=== PATIENT | female | born 1950 | race Caucasian/White ===

== ENCOUNTER 2019-12-21 14:04 | Inpatient (IN) | payer OTHER ==
[~2019-12-21] VITALS: Ht 157.5 cm; Wt 87.3 kg
[2019-12-21 14:04] VITALS: BP 188/114
[2019-12-21 14:29] LABS: ABSOLUTE NEUTROPHILS 4.9 thou/uL (1.4-8.2); EOSINOPHILS 2.7 % (0.0-3.0); HEMATOCRIT 37.7 % (37.0-47.0); HEMOGLOBIN 12.8 gm/dL (12.0-15.0); LYMPHOCYTES 22.8 % (24.0-44.0); MCH 33.1 pg (26.0-34.0); MCHC 33.8 g/dL (28.0-37.0); MCV 97.7 fL (80.0-100.0); PLATELET COUNT 346 thou/uL (150-400); POLYS 65.5 % (36.0-66.0); RBC 3.86 mil/uL (4.20-5.00); RDW 13.1 % (10.5-14.5); WBC 7.5 thou/uL (4.0-11.0)
[2019-12-21 14:35] LABS: ANION GAP 10 mmol/L (7-16); BUN 16 mg/dL (7-18); CALCIUM 8.4 mg/dL (8.5-10.1); CHLORIDE 102 mmol/L (98-107); CO2 26 mmol/L (21-32); CREATININE 0.9 mg/dL (0.6-1.0); GLUCOSE 226 mg/dL (74-106); POTASSIUM 4.3 mmol/L (3.5-5.1); SODIUM 138 mmol/L (136-145)
[2019-12-21 14:45] LABS: ALBUMIN 3.6 g/dL (3.4-5.0); SGOT 14 U/L (15-37); SGPT 27 U/L (30-65); TOTAL BILIRUBIN 0.3 mg/dL (0.2-1.0); TOTAL PROTEIN 7.6 g/dL (6.4-8.2); TROPONIN-I <0.06 ng/mL (<0.06)
--- NOTE | 2019-12-21 14:45 | EKG ---
[facility] [place] [address] ELECTROCARDIOGRAM REPORT Name: YUMI CAMARA Room #: [facility].#: [id number] Admission: Attend Phys: Discharge: Date of : 46 Report #: [id number] THIS REPORT FOR: cc: Suleman Mattson MD [facility] ~ THIS REPORT FOR: //name// [facility] ED Test Date: 2019-12-21 Test Time: 14:03:58 Pat Name: YUMI CAMARA Department: Room: Gender: F Dial Buffer: [facility] : 1950 Requested By: Krishna Lowe Order Number: [id number] MD: Suleman Mattson Measurements Intervals [place] Rate: 90 P: 62 OR: 180 QRS: 24 QRSD: 86 T: 90 QT: 383 QTc: 469 Interpretive Statements Sinus rhythm Borderline repolarization abnormality No previous ECG available for comparison Electronically Signed On 12-21-2019 14:45:21 CDT by Suleman Mattson [email or web address] <ELECTRONICALLY SIGNED> By: Suleman Mattson MD, FAC 12/21/19 1445 1403 1403 Suleman Mattson MD, FACC /EPI
--- NOTE | 2019-12-21 14:52 | NUR ---
PT STATES SHE IS CONT TO HAVE CHEST PAIN AND NECK PAIN. ERP NOTIFIED
--- NOTE | 2019-12-21 15:58 | NUR ---
PT CONT TO COMPLAIN OF CHEST AND NECK PAIN. ERP AWARE.
[2019-12-21 16:13] LABS: BE(vivo) -1.8 mmol/L (-2 to +3); HCO3 22.8 mmol/L (22.0-26.0); PCO2 38.3 mmHg (35.0-45.0); PO2 81.1 mmHg (80.0-100.0); pH 7.393 (7.360-7.450); sO2 95.9 % (92.0-98.0)
--- NOTE | 2019-12-21 16:20 | NUR ---
PT NOW DEMANDING TO BE RELEASED. DR MCGINNIS JUST LEFT ROOM
[2019-12-21 16:27] LABS: URINE BILIRUBIN NEGATIVE (Negative); URINE BLOOD NEGATIVE (Negative); URINE CLARITY CLEAR; URINE COLOR YELLOW; URINE GLUCOSE-RANDOM* TRACE (Negative); URINE KETONES NEGATIVE (Negative); URINE LEUKOCYTES-REFLEX NEGATIVE (Negative); URINE NITRITE-REFLEX NEGATIVE (Negative); URINE PROTEIN (DIPSTICK) NEGATIVE (Negative)
[2019-12-21 16:36] LABS: AMP/METHAMP Negative (Negative); BARBITURATES Negative (Negative); BENZODIAZEPINES POSITIVE (Negative); COCAINE Negative (Negative); METHADONE Negative (Negative); OPIATES Negative (Negative); PCP Negative (Negative)
--- NOTE | 2019-12-21 22:03 | NUR ---
PT'S SON CALLED. PATIENT HAS BEEN ASKING ABOUT SON AND WISHING TO SPEAK WITH HIM. PT CURRENTLY ASLEEP. SPOKE WITH CHARGE NURSE AND AGREES ITS OK TO TELL SON ABOUT PATIENTS CONDTION. SON IS UPDATED AND WOULD LIKET O BE CALLED WITH FURTHER UPDATES. DOES NOT KNOW OWN PHONE NUMBER BUT STATES PATIENT WILL KNOW WHEN SHE WAKES UP.
[2019-12-21 23:00] VITALS: BP 124/78
--- NOTE | 2019-12-22 02:13 | NUR ---
12/21/19 RECEIVED REPORT FROM POONAM IN ER, CARE TRANSFERRED AT 2300 PT AAOX1 VS LEFT ARM LYING 124/78, P 74, R 18, T 97.9, 96% RA, RR EVEN AND NONLABORED, PT PRESENTS SEDATED AND STAFF TRANSFERRED FROM [facility] TO BED, PT DRESSED IN HOSIPTAL GOWN AND NO PERSONAL ITEMS RECEIVED. PT IS CURRENTLY 1:1 R/T SI STATEMENTS IN ED, FALLS PRECAUTION PUT IN PLACE R/T SEDATION AND UNABLE TO FULLY ASSESS GAIT AND ROM. OF NOTE RNPOONAM SENT NEG COVID19 LAB WORK, THIS ADMISSION IS LIMITED AND LACKING INFORMATION FOR MEDICAL HISTORY AND MEDICATION LIST. LATER ASSISTED PT TO BEDSIDE COMMODE, PT LETHARGIC AND NEEDS MAX ASSIST X2 WITH STANDBY ASSIST R/T SEDATION. PT WAS PLACED IN BED AND POSITION FOR COMFORT. BED IS IN LOW POSITION, LOCKED AND ALARM ON WITH SITTER. PT WILL CONTINUE TO BE MONITOR 1:1 STATUS.
[2019-12-22 10:36] LABS: FOLIC ACID 14.9 ng/mL (8.6-58.9); TSH 0.808 uIU/mL (0.358-3.740)
--- NOTE | 2019-12-22 17:40 | NUR ---
Assumed care of patient at 0700. Sleeping, is on 1:1 for suicidal ideation. Resting. Breath sounds with bilateral rhonchi, moist non-productive cough, bowel sounds present, abdomen round without tenderness. Ambulating, steady on feet. No pedal edema noted. Tearful. Patient states is concerned about son and his state of mind. Complaining of severe feet pain. Patient states is (12/31). Signed consents for voluntary admission.
[2019-12-22 19:46] VITALS: BP 105/50
--- NOTE | 2019-12-23 02:07 | NUR ---
PATIENT ASSESSED IS VERY COOPERATIVE IN TAKING HER MEDICATION AT HS. ALERT X 3. SKIN WARM AND DRY. RESP EVEN AND UNLABORED. NO SI/HI NOTED BUT VERY ANXIOUS. WANTED HER XANAX FOR HER ANXIETY. PACING THE HALLWAY. REQUESTED FOR HER BELONGINGS THAT SHE BROUGHT IN IN ED. CALLED ED AND THEY HAD HER CLOTHES AND HER COMB. ALWAYS ASKING FOR SOMETHING NEW. CALLED AND RECEIVED ONE TIME MED FOR ANXIETY. OLANZAPINE GIVEN. PATIENT STILL ASKING FOR HER BELONGINGS. FINALLY WENT IN HER ROOM AND LAID DOWN. SHE FINALLY WENT TO SLEEP AT 2220. STILL SLEEPING OF 0220. BS WAS 201. DENIES ANY NEEDS AT THIS TIME. REMAINS SLEEPING. CONT PLAN OF CARE.
[2019-12-23 05:07] LABS: GLYCOHEMOGLOBIN (HGB A1C) 6.7 % (4.8-5.6)
--- NOTE | 2019-12-23 05:50 | NUR ---
Patient awake and came to nursing station and stated "can I have my xanax", patient apears to be anxious. Crackers given and xanax given and back to bed.
[2019-12-23 08:00] VITALS: BP 136/95
--- NOTE | 2019-12-23 09:05 | NUR ---
PT WAS IN ROOM LET THIS NURSE TAKE BLOOD SUGAR AND GIVE S/S INSULIN. PT TOOK MEDS AND B12 INJECTION WITH SOME ENCOURAGEMENT. PT IS EASILY REDIRECTED.ATE BREAKFAST. GIVEN SCED PAIN MED. NO RESP DISTRESS. PT IS PINK UNDER BREASTS WITH YEAST ODOR. WILL GET NYSTATIN PWDER PRN IF DOCTOR OKAYS
--- NOTE | 2019-12-23 10:09 | NUR ---
PT DID NOT WANT TO GO TO GROUP IS ON ROOM LOCK OUT. THIS NURSE SAT WITH PATIENT AND PRAYED WITH PATIENT. GIVEN PRN PAIN MED AND AT THIS TIME PT IS GOING TO TAKE NAP.
--- NOTE | 2019-12-23 12:43 | NUR ---
PT ATE LUNCH AND IS NOW SPEAKING WITH THE DOCTOR. INSULIN ORDERS DCD. PT HAS NEW ODERS SEE MAR. HAS NEW TX ORDERS.
--- NOTE | 2019-12-23 15:32 | NUR ---
SW was informed by Dr. Cuellar that he and pt has agreed to a d/c of 1300 on 12/23. He asked that SW schedule a PCP appointment, and that she link pt to psych services. Pt said her PCP is Dr. Allison with [facility]. SW contacted the clinic that Dr. Allison works in and was told that pt actually sees Elizabet Sneed. ASHLEY scheduled an appt with Elizabet for 12/28 @930 in building C. SW team will continue to follow pt during her stay on this unit.
[2019-12-23 17:11] VITALS: BP 136/95
[2019-12-23 19:48] VITALS: BP 122/61
--- NOTE | 2019-12-23 23:28 | NUR ---
Care assumed of patient at 1915: Patient sleeping in bed at start of shift. Patient difficult to arouse, lethargic, slurring words. During initial assessment, patient had difficulty staying awake. Patient was able to report that her anxiety was a 10/10 and pain to lower extremities was "bigger than 10/10" while appearing lethargic. Patient was able to wake up quickly when she was told that her son tried to call. Patient asked for the phone and was assisted in calling her son. Patient then requested a snack and was told she would need to come to the dayroom. Patient argumentative and agitated at that point. Patient denies SI/HI/AH/VH. Denies depression. Patient then became physically inappropriate by touching nurse, hugging, pulling her arm. Required re-direction on respecting personal boundaries. Patient had multiple complaints regarding staff and other peers on the unit. Soon after, patient would state that she is not ready to go home tomorrow. Patient talking excessively, needy, wanting assist from staff despite being able to complete ADLs independently. Patient demanded apple juice with her PM pills because she could not take them with water, despite that she was drinking ice water at the time. Patient hollering from her room stating she can't sit up and wanted staff to lift her up. Nurse raised head of bed so she could pivot and sit up easier. Patient then said, "no, it is your job to lift me up!". Funmilayo from her room, attention seeking. Refused nebulizer treatments from RT. Patient was able to fall to sleep without difficulty after taking HS medication. After approximately 1.5 hours, patient demanding pain medication for her "breakthrough pain". No s/s of pain or distress observed. No lethargy or sluggish behaviors observed. Provided PRN Oxycodone per MD order. Patient sleeping in bed at this time.
[2019-12-24 07:53] VITALS: BP 147/77
[2019-12-24 08:36] VITALS: BP 147/77
--- NOTE | 2019-12-24 08:36 | NUR ---
PT SITTING OUT IN DINING ROOM. PT STATED SHE DIDN'T WANT TO GO HOME TODAY THAT SHE OPENED UP SOMETHING IMPORTANT AND SHE WANTS TO STAY. PT STATED SHE WANTED AN MRI FOR HER BACK DUE TO IT IS HURTING HER OF PAIN LEVEL 12 OUT OF 1-10. PT WANTING TO TALK TO TILE LAYER DRAINAGE TODAY. PT WANTING TO TALK TO DR FORREST.
[2019-12-24 08:37] VITALS: BP 147/77
--- NOTE | 2019-12-24 08:47 | NUR ---
ADM XANAX 1MG PO PER REQUEST. PT WANTING PAIN MEDICATION ALSO, PT HAD EARLY THIS AM AND NOT DUE AT THIS TIME.
[2019-12-24] MEDS ORDERED: LIPITOR40 MG PO (11:38)
[2019-12-24] MEDS ORDERED: ZETIA10 MG PO (11:40)
[2019-12-24] MEDS ORDERED: COREG6.25 MG PO (11:40)
[2019-12-24] MEDS ORDERED: BENICAR40 MG PO (11:41)
[2019-12-24] MEDS ORDERED: OXYCONTIN10 M1 PO (11:42)
[2019-12-24] MEDS ORDERED: NEURONTIN600 MG PO ×2 (11:43→11:44)
[2019-12-24] MEDS ORDERED: OXCARBAZEPINE300 MG PO (11:44)
[2019-12-24] MEDS ORDERED: GLUCOPHAGE500 MG PO (11:45)
[2019-12-24] MEDS ORDERED: XANAX1 MG PO (11:45)
[2019-12-24] MEDS ORDERED: PT HOME MEDICATION MISCELL (11:46)
[2019-12-24] MEDS ORDERED: AMARYL2 MG PO (11:46)
--- NOTE | 2019-12-24 11:59 | NUR ---
PT CRYING AND UPSET ABOUT GOING HOME TODAY.
--- NOTE | 2019-12-24 12:54 | NUR ---
PT GETTING READY TO GO HOME. PT DIDN'T WANT TO WEAR HER SHIRT FROM ADMIT SAYING ITS TOO HOT. PT WANTING TO WEAR YELLOW SHIRT HOME. TOLD PT SHE NEEDS TO WEAR HER CLOTHES. ADM PERCOCET 7.5MG PO FOR PAIN TO LOWER BACK.
--- NOTE | 2019-12-24 13:04 | NUR ---
PT STATED SHE DIDN'T HAVE ANY MONEY TO PAY FOR HER MEDS. OUT PATIENT PHARMACY FILLING HER MEDS AND SAID THAT SHE HAD HER MEDS FILLED OUT ALREADY. PT TALKING ABOUT SHE ISN'T TAKING PERCOCET 7.5MG BEFORE, SHE WAS TOLD TO GET RID OF HER PERCOCET 5MG AND SHE GROUND IT UP IN THE GARBAGE DISPOSAL. SHE SAYS THAT SHE WILL NEED HER MEDS FROM HERE. THERE IS A MEDICATION THAT IS GETTING FILLED IN OP PHARMACY THAT WE WILL CARTOGRAPHY TECHNICIAN FOR HER.
--- NOTE | 2019-12-24 13:50 | NUR ---
PT TALKING ON PHONE WITH FRIEND. PT CRYING AND SAID SHE DIDN'T HAVE ANY MONEY TO PAY FOR HER MEDS. SHE ASKED WHAT HER FRIEND IS DOING TONIGHT AND HER FRIEND SAID THAT SHE WAS GOING TO HAVE DINNER WITH HER FAMILY. THE PT CRYING AND SAID SHE WISHES SHE WAS GOOD ENOUGH TO HAVE DINNER WITH THE FAMILY TOO. SHE ASKED HER FRIEND IF SHE WAS A GOOD PERSON. SHE DIDN'T WANT TO SIGN HER D/C INSTRUCTIONS. THIS BASE FILLER OPERATOR PICKED UP SCRIPT FOR PT IN THE OUT PATIENT PHARMACY AND ALSO PICKED UP HOME MED IN PHARMACY. PUT MEDS IN HER BAGS FOR DISCHARGE. PT LEFT VIA W/C TO CAB.
--- NOTE | 2019-12-24 14:12 | NUR ---
ASHLEY D/C NOTE ASHLEY gave pt a SW Handout and explained to her the appt with her PCP and how to contact [facility] for case management. ASHLEY also contacted [facility] and spoke to the Supervisor [employer] Kyra. She said she does not know pt because she lives in one of the apartments. ASHLEY asked if they knew anything about pt's son. She said no. She said if pt's son is found to be in the apartment they will hotline this issue. ASHLEY faxed to [facility] building D pt's discharge docs. ASHLEY will file this and the confirmation page in pt's hospital file. No other needs for ASHLEY team to address at this time.
--- NOTE | 2019-12-27 07:44 | H ---
[facility] [place] [address] HISTORY AND PHYSICAL Name: YUMI CAMARA Room #: 519B-B [facility] IN M.R.#: [id number] Admission: 12/21/19 Attend Phys: Konrad Cuellar DO Discharge: 12/24/19 Date of : 46 Report #: [id number] THIS REPORT FOR: cc: DANGELO - Family physician unknown FAM - Family physician unknown Konrad Cuellar DO ~ CC: Konrad PIERSON unknown DATE OF SERVICE: 12/22/2019 INPATIENT PSYCHIATRIC EVALUATION ATTENDING PSYCHIATRIST: Konrad Cuellar DO. CUSTOM TAILOR: Ana Cristina Kendall, nurse practitioner and her collaborating physician Fahad Bustamante MD. REASON FOR ADMISSION: Suicidal ideation with a pen, possible overdose abuse of benzodiazepine. SOURCES OF INFORMATION: Interview with the patient. Affidavit done by her friend, Mario, Emergency Room records. HISTORY OF PRESENT ILLNESS: This is a 69-year-old obese female, who was brought by EMS to [facility] yesterday afternoon. The patient was brought due to a 911 call placed by her friend, Mario Susan. Mario's phone number is [phone]. Mario allegated on the [facility] affidavit for emergency evaluation. She has found the patient talking on the phone often. The patient has been very upset with her living situation. She lives at [address], in an independent living kind of apartment. Today around noon this would have been on 12/20, she said she wished she was . She said "I am going to kill myself." After a few moments of talking, she said "wait until I find a knife, I am going to slit my wrists," then she said "I have plenty of pills to do that, you know." A couple of days previously on Friday, her friend picked up a prescription of alprazolam for her. The patient told her friend that she only had 15 tablets left for now. I asked what happened to the other pills and she stated she gave it to her son to help him sleep because "I couldn't handle him anymore." She said she accidentally "went through the rest of the day." Her friend was afraid she had overdosed on them. In the Emergency Room, the patient was intermittently somnolent, complaining of peripheral leg pain. She denied that, she stated she wanted to harm herself. I reviewed with her recent medical admissions from around a month ago where the patient had declined to go to a detention facility. She stated that she did not need it was the reason. The patient was oriented to person, place, and situation at least grossly to time. She was falling asleep easily in the ER, [place] [address] HISTORY AND PHYSICAL Name: YUMI CAMARA Room #: 519B-B DIS IN M.R.#: [id number] Admission: 12/21/19 Attend Phys: Konrad Cuellar, Discharge: 12/24/19 Date of : 46 Report #: [id number] interview I could do with her yesterday; however, I did explain to the patient that we would need to at least admit her briefly to establish the safety of things. Unfortunately, overnight, on Friday night and Friday, the [place] 96-hour hold application was not completed in the usual timeframe and at this point the patient will have to sign involuntarily, otherwise I will need to discharge her. Since she came to the unit last night, there has not been self-harm behavior for precautions. She was put on a 1:1, but I do not believe this is necessary and I discontinued this this morning. Additional information is heavily obtained from chart review. ALLERGIES: TO CODEINE, FENTANYL, IODINE AND IODINE CONTAINING PRODUCTS, METHOTREXATE, METOCLOPRAMIDE, PROMETHAZINE, AND SULFA. The patient has a separate medical record done from most of her admissions here. Last admission was October of this year on under her hospitalist service. At that time, she had intractable abdominal pain and was admitted for that issue. Her medical problems include coronary artery disease, status post bypass graft, chronic leg pain, and COPD, diarrhea, falls, intractable abdominal pain. Allergies, as stated. ADDITIONAL PAST MEDICAL HISTORY: [place] in 1996, GERD, carpal tunnel syndrome, peripheral neuropathy. SURGICAL HISTORY: Appendectomy, cholecystectomy, laparotomy with left tubo-ovarian abscess and a partial bowel resection, so bladder suspension, hysterectomy for uterine cancer, bilateral salpingo-oophorectomy, cardiac cath x 3. She does have a smoking history. Borderline diabetes mellitus and hypertension. She quit smoking cigarettes over a year ago. It looks like in October she was diagnosed with sepsis as well. DEVELOPMENTAL HISTORY AND SOCIAL HISTORY: Unobtainable. Her friend did tell me the patient lives alone. The patient herself admitted that she was in touch with her daughter, but now this is strange, so I am lacking a lot of social history. LABORATORY DATA: Laboratories on this admission are listed under for some reason history and medical record number, white blood cell count 7.5, H and H 12.8 and 37.7, platelet count 346. Blood gas was normal, done in the ER approximately 6 weeks. Hemoglobin was slightly high at 2.0, upper limit of normal is 1.5. Sodium 138, potassium 4.3, chloride 102, bicarbonate 26, anion gap 10, BUN 16, creatinine 0.9, estimated GFR 62. Hemoglobin A1c is pending. Calcium 8.4, slightly low. AST 14, ALT 27, alkaline phosphatase 88. Troponin [facility] [address] [place] [address] HISTORY AND PHYSICAL Name: YUMI CAMARA Room #: 519B-B DIS IN ..#: [id number] Admission: 12/21/19 Attend Phys: Konrad Cuellar, DO Discharge: 12/24/19 Date of : 46 Report #: [id number] less than 0.06. Total protein 7.6, albumin 3.6. B12 level of 197. Folate 14.9. TSH normal at 0.808. Go ahead and offered her oral B12 at home. I think intramuscular B12 will go over well now, as she is likely going to not sign in and she will need to be discharged since window from the 96-hour was not met. COVID-19 PCR is negative. PHYSICAL EXAMINATION: VITAL SIGNS: Temperature 36.6, pulse 74, respirations 18, BP 124/70, O2 sat 96%. The patient believes he uses a walker. I have not seen her ambulate. MUSCULOSKELETAL: Obese, lying in bed or gurney. MENTAL STATUS EXAMINATION: This is a well-developed, unkempt, obese female appearing older than her stated age. Attention limited. Concentration fair to limited. Speech is normal in rate, volume and tone. Thought process: Linear and goal directed when not fallen asleep. Thought content: Focused on going home. Psychomotor agitation at times. No psychomotor retardation. Denied SI or HI. Denied auditory, visual, or tactile hallucinations. Memory is not formally tested. Mood and affect were congruent, constricted, irritable. Insight limited. Judgment limited. Fund of knowledge, no greater than average. FORMULATION: A 69-year-old female brought by EMS to the ER after she made a threat of suicide over the phone when speaking to her friend, Mario. DIAGNOSES: At this time, unspecified depressive disorder, likely mood disorder due to general medical condition, chronic pain disorder. MEDICATIONS: Currently in the hospital are insulin Humalog sliding scale. Otherwise, house PRNs. She did get an injection of Geodon in the ER, 2 tablets of oxycodone in the ER and 1200 mg stat dose of gabapentin. ESTIMATED LENGTH OF STAY: 2-4 days. PLAN. Will be for her to return to NH. With recommendation, transition to assisted living will be sought. Time spent for this evaluation is 45 minutes. REVIEW OF SYSTEMS: This was not possible due to her level of sedation and cooperation. STRENGTHS: She is insured. [address] [address] HISTORY AND PHYSICAL Name: YUMI CAMARA Room #: 519B-B DIS IN M.R.#: [id number] Admission: 12/21/19 Attend Phys: Konrad Cuellar DO Discharge: 12/24/19 Date of : 46 Report #: [id number] WEAKNESSES: Repeated stays at the hospital throughout the year. Poor coping skills. <ELECTRONICALLY SIGNED> By: Konrad Cuellar DO 12/27/19 0744 1256 1410 Konrad Cuellar DO /nt
--- NOTE | 2019-12-27 08:05 | D ---
[facility] [place] [address] DISCHARGE SUMMARY Name: YUMI CAMARA Room #: 519B-B DIS IN M.R.#: [id number] Admission: 12/21/19 Attend Phys: Konrad Cuellar DO Discharge: 12/24/19 Date of : 46 Report #: [id number] THIS REPORT FOR: cc: DANGELO - Family physician unknown FAM - Family physician unknown Konrad Cuellar DO ~ THIS REPORT FOR: //name// CC: Konrad PIERSON unknown DATE OF SERVICE: 12/24/2019 INPATIENT PSYCHIATRIC DISCHARGE SUMMARY ATTENDING PSYCHIATRIST: Konrad Cuellar DO. . [employer] G[employer] YARD SUPERVISOR AT THE TIME OF DISCHARGE: Fahad Bustamante MD. DISCHARGE DIAGNOSIS: Unspecified depressive disorder, modest improvement. ADDITIONAL DIAGNOSIS: Chronic pain disorder. MEDICAL COMORBIDITIES: Include obesity, diabetes, hypertension, hyperlipidemia, peripheral neuropathy, coronary artery disease. DISCHARGE PLAN: The patient is discharging to her home in an independent living at the [facility]. The patient's primary care physician is Dr. [facility] where she has an appointment for 12/29/2019 at 9:30. The patient will also be engaging with [facility] with [facility]. Our social media project manager, Patti, contacted the social media project manager at [facility]. [facility] social media project manager responded that she ___ the patient because she lives in one of the apartments. They were unaware of any concerns with the patient's son who she claims is addicted to drugs. DIET: Regular. ACTIVITY LEVEL: As tolerated. No alcohol, no illicit drugs. The patient does not smoke to the best of my knowledge. DISCHARGE MEDICATIONS: The patient picked up the prescription of oxcarbazepine 300 mg p.o. b.i.d. #60, 300 mg tabs at the [place] outpatient pharmacy. The pharmacist determined the patient had refills for other medications at the [facility] she normally fills at, so that I had initially dropped out the prescriptions after this was realized, no other prescriptions were filled to limit the potential of dispensing or potential overdose situation, which was of some [facility] [address] [place] [address] DISCHARGE SUMMARY Name: YUMI CAMARA Room #: 519B-B [facility] IN ..#: [id number] Admission: 12/21/19 Attend Phys: Konrad Cuellar DO Discharge: 12/24/19 Date of : 46 Report #: [id number] concern at the time of the patient's admission. REASON FOR ADMISSION: Back on 12/21/2019, she was brought by EMS allegedly she had told in front of the phone she would slit her wrist with a knife. She denies this in the ER, was agitated, reporting having uncontrollable pain in the lower extremities. Interestingly, she has fallen asleep frequently in the ER, she was kept overnight and had to be given with intramuscular Geodon to help through her ER stay. HOSPITAL COURSE: The patient was admitted to Geriatric Psychiatry Unit initially, the patient had been involuntary; however, the 96-hour paperwork was not found in the appropriate window. The patient was given the option the next day about discharging her to sign involuntarily. She did elect to sign involuntarily. I met with the patient, she reported an extensive trauma history. The patient stated she had been living at the [facility] for rehabilitation in the [facility] operation, that facility closed in October and she was forced to move elsewhere, so she is now at [facility]. During the course of this admission, the patient would frequently avoid groups or if she was noted to go to them with little effort of participation. She often complained of staff including the social media project manager and myself are not talking with her. A number of opportunities were given for this and was explained to the patient that the nature of this hospitalization is short stay of stabilization and some of the things she was requesting could only be found in an outpatient individual psychotherapy setting. The patient unfortunately was found to be not benefiting from the environment, so on the day of discharge, she claims "she was jumping out of her skin" yet 15-20 minutes later, she would make jokes. Her behavior was not consistent with someone having overwhelming anxiety or the akathisia that can be seen in acutely suicidal patient. ADDITIONAL INFORMATION: Significant laboratories this admission, on the CBC, white count 7.5, H and H 12.8 and 37.7, platelet count 346. Chemistries were pretty normal except glucose 226 at admission. Hemoglobin A1c 6.7 indicating mild diabetes mellitus type 2. Calcium 8.4, AST 24, ALT 27, alkaline phosphatase 88. Troponin less than 0.06. Total protein 7.6. Vitamin B12 was low at 197 and should be replaced, folate 14.9. TSH 0.808. Urinalysis within normal limits. Salicylate is less than 2.8, acetaminophen less than 2. Benzodiazepines positive. Other things of note toxicology screen was negative. COVID-19 PCR serology was negative. PHYSICAL EXAMINATION: VITAL SIGNS: On the day of discharge, temperature 36.4, pulse 87, respirations 18, BP 147/77, O2 sat 97%. MUSCULOSKELETAL: Normal gait and station. MENTAL STATUS EXAMINATION: This is a well-developed, obese, unkempt female appearing at least stated age. Attention fair. Concentration limited. [facility] [place] [address] DISCHARGE SUMMARY Name: YUMI CAMARA Room #: 519B-B DIS IN M.R.#: [id number] Admission: 12/21/19 Attend Phys: Konrad Cuellar DO Discharge: 12/24/19 Date of : 46 Report #: [id number] Speech loud, normal rate. Thought process is linear and goal oriented. Thought content, focused on times of not being able to go, other times being fairly hostile with staff. Variable psychomotor agitation. Denied SI or HI. Denied auditory, visual, or tactile hallucinations. Memory not formally tested on the day of discharge. Insight limited. Judgment fair to limited. Fund of knowledge below average. PROGNOSIS: For this patient is guarded given her limited ability to tolerate therapeutic interventions as well as her comorbidities of living situation. <ELECTRONICALLY SIGNED> By: Konrad Cuellar DO 12/27/1905 2326 Konrad Cuellar DO /nt
== END 2019-12-24 13:55 | disposition home or self-care (01) | DRG 881 ==
LOC: ER 14:04 → SBH 18:40 → EROBS 18:40 → SBH 22:56
PROVIDERS: Emergency Medicine; ADMIT Psychiatry & Neurology Psychiatry; ATTEND Psychiatry & Neurology Psychiatry
DX: F32.9 Major depressive disorder, single episode, unspecified (principal); T42.4X2A Poisoning by benzodiazepines, intentional self-harm, initial encounter; R45.851 Suicidal ideations; K50.90 Crohn's disease, unspecified, without complications; F23 Brief psychotic disorder; R07.9 Chest pain, unspecified; I25.10 Atherosclerotic heart disease of native coronary artery without angina pectoris; E66.9 Obesity, unspecified; E11.42 Type 2 diabetes mellitus with diabetic polyneuropathy; I10 Essential (primary) hypertension; F39 Unspecified mood [affective] disorder; E78.5 Hyperlipidemia, unspecified; F41.9 Anxiety disorder, unspecified; F43.10 Post-traumatic stress disorder, unspecified; K21.9 Gastro-esophageal reflux disease without esophagitis; J44.9 Chronic obstructive pulmonary disease, unspecified; Z20.828 Contact with and (suspected) exposure to other viral communicable diseases; Z90.49 Acquired absence of other specified parts of digestive tract; Y92.89 Other specified places as the place of occurrence of the external cause; Z88.5 Allergy status to narcotic agent; Z88.2 Allergy status to sulfonamides; Z88.8 Allergy status to other drugs, medicaments and biological substances; Z91.048 Other nonmedicinal substance allergy status; Z68.35 Body mass index [BMI] 35.0-35.9, adult; I25.2 Old myocardial infarction; Z90.710 Acquired absence of both cervix and uterus; Z85.42 Personal history of malignant neoplasm of other parts of uterus; Z87.891 Personal history of nicotine dependence
CPT/HCPCS: 10880

== ENCOUNTER 2020-01-17 04:52 | Inpatient (IN) | payer OTHER ==
[~2020-01-17] VITALS: Ht 160 cm; Wt 96.3 kg
--- NOTE | ~2020-01-17 | EMS ---
[address] [address] EMS Patient Care Report Name: YUMI CAMARA Room #: REG BERTHA Umana#: [id number] Admission: 01/17/20 Attend Phys: Discharge: Date of : 46 Report #: [id number] THIS REPORT FOR: //name// Report Transmitted: 01/17/2020 06:59 EMS Care Summary [facility] Incident [id number] @ 01/17/2020 04:04 Incident Location [id number] [place] [address] Patient YUMI CAMARA Female, 69 Years 1950 Patient Address [id number] [place] [address] Patient History Hypertension (HTN),Neuropathy, Patient Allergies Sulfa,Fentanyl,Iodine,Dye allergy, Patient Medications Gabapentin, Chief Complaint Breathing problems Disposition Transported No Lights/[place] Dispatch Reason Falls Transported To [facility] Narrative S51 dispatched for fall. Arrived on scene to find pt sitting upright on the ground with her back against her couch. Pt stated she had neuropathy in her [address] [address] EMS Patient Care Report Name: YUMI CAMARA Room #: REG Dong#: [id number] Admission: 01/17/20 Attend Phys: Discharge: Date of : 46 Report #: [id number] legs and had difficulty ambulating. Neither the pt nor her son provided any reason for her being on the floor, despite being questioned multiple times. Pt denied any new pain associated with falling, complaining only of breathing problems. Pt was assisted to standing and seated on the stretcher. Once on the stretcher pt was secured via seat belts. Once in the ambulance pt's vitals were assessed, pt was placed on 2L via NC for dyspnea, and transport was initiated. En route 12 lead ECG was obtained and 20G IV was unsuccessfully attempted in pt's R forearm. Pt was monitored for the duration of transport and arrived at the destination facility with no significant changes in her condition observed or reported, aside from increase in O2 saturation. Upon arrival at the destination facility pt was transferred from stretcher to facility bed via sheet draw, pt care report was provided to facility staff, and pt care was turned over. All times are estimations. EMTP [id number]. Initial Vitals @04:25P: 85,SpO2: 91, @04:35MI Suspected: false @04:26P: 83,R: 16,BP: 212/98,Pain: 6/10,GCS: 15,CO: 1,SpO2: 90,Revised Trauma: 12, @04:36P: 77,R: 16,BP: 171/89,Pain: 6/10,GCS: 15,Glucose: 160,EtCO2: 45,Revised Trauma: 12, @04:28P: 83,R: 16,CO: 2,EtCO2: 35,SpO2: 90, Assessments @04:16MENTAL:Person Oriented,Time Oriented,Place Oriented,Event Oriented,SKIN:HEENT:Head/Face: No Abnormalities,Neck/Airway: No Abnormalities,LUNG SOUNDS:General: No Abnormalities,ABDOMEN:General: No Abnormalities,PELVIS//GI:EXTREMITIES:Left Arm: No Abnormalities,Right Arm: No Abnormalities,Left Leg: No Abnormalities,Right Leg: No Abnormalities,PULSE:NEURO:No Abnormalities,@04:45MENTAL:Person Oriented,Place Oriented,Time Oriented,Event Oriented,SKIN:HEENT:Head/Face: No Abnormalities,Neck/Airway: No Abnormalities,LUNG SOUNDS:General: No Abnormalities,ABDOMEN:General: No Abnormalities,PELVIS//GI:EXTREMITIES:Left Arm: No Abnormalities,Right Arm: No Abnormalities,Left Leg: No Abnormalities,Right Leg: No Abnormalities,PULSE:NEURO:No Abnormalities, Impression Shortness of breath Procedures @04:3512-Lead ECGSucceeded@04:42Saline Lock 1cc (20 ga) Site: Forearm-RightResponse: UnchangedFailed Timeline 04:01,Call Received 04:01,[place] [address] EMS Patient Care Report Name: YUMI CAMARA Room #: REG BERTHA Umana#: [id number] Admission: 01/17/20 Attend Phys: Discharge: Date of : 46 Report #: [id number] 04:04,Dispatched 04:07,En Route 04:11,Initial Responder On Scene 04:11,On Scene 04:15,At Patient 04:25,BP: / M,PULSE: 85,RR: R,SPO2: 91 Ox,ETCO2: ,BG: ,PAIN: ,GCS: , 04:26,BP: 212/98 M,PULSE: 83,RR: 16 R,SPO2: 90 Ox,ETCO2: ,BG: ,PAIN: 6,GCS: 15, 04:27,Depart Scene 04:28,BP: / M,PULSE: 83,RR: 16 R,SPO2: 90 Ox,ETCO2: 35 ,BG: ,PAIN: ,GCS: , 04:35,12-Lead ECG,Succeeded, 04:35,BP: / M,PULSE: ,RR: R,SPO2: Ox,ETCO2: ,BG: ,PAIN: ,GCS: , 04:36,BP: 171/89 M,PULSE: 77,RR: 16 R,SPO2: Ox,ETCO2: 45 ,B,PAIN: 6,GCS: 15, 04:42,Saline Lock 1cc 20 ga Site: Forearm-Right,Response: UnchangedFailed, 04:45,At Destination 05:11,Call Closed Disclaimer v1.1 Copyright 2020 [email or web address] This EMS Care Summary contains data elements from the applicable legal record (which may be displayed differently). It is designed to provide pertinent information for the following purposes: continuity of care, clinical quality, and state data reporting. The complete legal record is available to ED staff and administrators of the receiving hospital in [employer] Patient Tracker. All data is provided "as is."
--- NOTE | ~2020-01-17 | EMS ---
[address] [address] EMS Patient Care Report Name: YUMI CAMARA Room #: REG BERTHA Umana#: [id number] Admission: 01/17/20 Attend Phys: Discharge: Date of : 46 Report #: [id number] THIS REPORT FOR: //name// Report Transmitted: 01/17/2020 06:57 EMS Care Summary [facility] Incident [id number] @ 01/17/2020 04:04 Incident Location [id number] [place] [address] Patient YUMI CAMARA Female, 69 Years 1950 Patient Address [id number] [place] [address] Patient History Hypertension (HTN),Neuropathy, Patient Allergies Sulfa,Fentanyl,Iodine,Dye allergy, Patient Medications Gabapentin, Chief Complaint Breathing problems Disposition Transported No Lights/[place] Dispatch Reason Falls Transported To [facility] Narrative S51 dispatched for fall. Arrived on scene to find pt sitting upright on the ground with her back against her couch. Pt stated she had neuropathy in her [address] [address] EMS Patient Care Report Name: YUMI CAMARA Room #: REG Dong#: [id number] Admission: 01/17/20 Attend Phys: Discharge: Date of : 46 Report #: [id number] legs and had difficulty ambulating. Neither the pt nor her son provided any reason for her being on the floor, despite being questioned multiple times. Pt denied any new pain associated with falling, complaining only of breathing problems. Pt was assisted to standing and seated on the stretcher. Once on the stretcher pt was secured via seat belts. Once in the ambulance pt's vitals were assessed, pt was placed on 2L via NC for dyspnea, and transport was initiated. En route 12 lead ECG was obtained and 20G IV was unsuccessfully attempted in pt's R forearm. Pt was monitored for the duration of transport and arrived at the destination facility with no significant changes in her condition observed or reported, aside from increase in O2 saturation. Upon arrival at the destination facility pt was transferred from stretcher to facility bed via sheet draw, pt care report was provided to facility staff, and pt care was turned over. All times are estimations. EMTP [id number]. Initial Vitals @04:25P: 85,SpO2: 91, @04:35MI Suspected: false @04:26P: 83,R: 16,BP: 212/98,Pain: 6/10,GCS: 15,CO: 1,SpO2: 90,Revised Trauma: 12, @04:36P: 77,R: 16,BP: 171/89,Pain: 6/10,GCS: 15,Glucose: 160,EtCO2: 45,Revised Trauma: 12, @04:28P: 83,R: 16,CO: 2,EtCO2: 35,SpO2: 90, Assessments @04:16MENTAL:Person Oriented,Time Oriented,Place Oriented,Event Oriented,SKIN:HEENT:Head/Face: No Abnormalities,Neck/Airway: No Abnormalities,LUNG SOUNDS:General: No Abnormalities,ABDOMEN:General: No Abnormalities,PELVIS//GI:EXTREMITIES:Left Arm: No Abnormalities,Right Arm: No Abnormalities,Left Leg: No Abnormalities,Right Leg: No Abnormalities,PULSE:NEURO:No Abnormalities,@04:45MENTAL:Person Oriented,Place Oriented,Time Oriented,Event Oriented,SKIN:HEENT:Head/Face: No Abnormalities,Neck/Airway: No Abnormalities,LUNG SOUNDS:General: No Abnormalities,ABDOMEN:General: No Abnormalities,PELVIS//GI:EXTREMITIES:Left Arm: No Abnormalities,Right Arm: No Abnormalities,Left Leg: No Abnormalities,Right Leg: No Abnormalities,PULSE:NEURO:No Abnormalities, Impression Shortness of breath Procedures @04:3512-Lead ECGSucceeded@04:42Saline Lock 1cc (20 ga) Site: Forearm-RightResponse: UnchangedFailed Timeline 04:01,Call Received 04:01,[place] [address] EMS Patient Care Report Name: YUMI CAMARA Room #: REG BERTHA Umana#: [id number] Admission: 01/17/20 Attend Phys: Discharge: Date of : 46 Report #: [id number] 04:04,Dispatched 04:07,En Route 04:11,Initial Responder On Scene 04:11,On Scene 04:15,At Patient 04:25,BP: / M,PULSE: 85,RR: R,SPO2: 91 Ox,ETCO2: ,BG: ,PAIN: ,GCS: , 04:26,BP: 212/98 M,PULSE: 83,RR: 16 R,SPO2: 90 Ox,ETCO2: ,BG: ,PAIN: 6,GCS: 15, 04:27,Depart Scene 04:28,BP: / M,PULSE: 83,RR: 16 R,SPO2: 90 Ox,ETCO2: 35 ,BG: ,PAIN: ,GCS: , 04:35,12-Lead ECG,Succeeded, 04:35,BP: / M,PULSE: ,RR: R,SPO2: Ox,ETCO2: ,BG: ,PAIN: ,GCS: , 04:36,BP: 171/89 M,PULSE: 77,RR: 16 R,SPO2: Ox,ETCO2: 45 ,B,PAIN: 6,GCS: 15, 04:42,Saline Lock 1cc 20 ga Site: Forearm-Right,Response: UnchangedFailed, 04:45,At Destination 05:11,Call Closed Disclaimer v1.1 Copyright 2020 [employer] This EMS Care Summary contains data elements from the applicable legal record (which may be displayed differently). It is designed to provide pertinent information for the following purposes: continuity of care, clinical quality, and state data reporting. The complete legal record is available to ED staff and administrators of the receiving hospital in [employer]'s Patient Tracker. All data is provided "as is."
[~2020-01-17 04:52] MED LIST: AMARYL2 MG PO; BENICAR40 MG PO; COREG6.25 MG PO; GLUCOPHAGE500 MG PO; LIPITOR40 MG PO; NEURONTIN600 MG PO; OXCARBAZEPINE300 MG PO; OXYCONTIN10 M1 PO; PT HOME MEDICATION MISCELL; XANAX1 MG PO; ZETIA10 MG PO
[2020-01-17 04:53] VITALS: BP 183/82
[2020-01-17 06:45] LABS: ABSOLUTE NEUTROPHILS 5.1 thou/uL (1.4-8.2); EOSINOPHILS 4.8 % (0.0-3.0); HEMATOCRIT 34.2 % (37.0-47.0); HEMOGLOBIN 11.6 gm/dL (12.0-15.0); LYMPHOCYTES 24.2 % (24.0-44.0); MCH 33.2 pg (26.0-34.0); MCV 97.9 fL (80.0-100.0); MONOCYTES 7.4 % (1.0-8.0); PLATELET COUNT 377 thou/uL (150-400); POLYS 62.6 % (36.0-66.0); RBC 3.49 mil/uL (4.20-5.00); RDW 13.2 % (10.5-14.5); WBC 8.2 thou/uL (4.0-11.0)
[2020-01-17 06:56] LABS: ANION GAP 9 mmol/L (7-16); BUN 11 mg/dL (7-18); CALCIUM 8.8 mg/dL (8.5-10.1); CHLORIDE 103 mmol/L (98-107); CO2 28 mmol/L (21-32); CREATININE 0.9 mg/dL (0.6-1.0); GLUCOSE 144 mg/dL (74-106); POTASSIUM 4.2 mmol/L (3.5-5.1); SODIUM 140 mmol/L (136-145)
[2020-01-17 07:04] LABS: URINE BILIRUBIN NEGATIVE (Negative); URINE BLOOD NEGATIVE (Negative); URINE CLARITY CLEAR; URINE COLOR YELLOW; URINE GLUCOSE-RANDOM* NEGATIVE (Negative); URINE KETONES NEGATIVE (Negative); URINE LEUKOCYTES-REFLEX NEGATIVE (Negative); URINE NITRITE-REFLEX NEGATIVE (Negative); URINE PROTEIN (DIPSTICK) NEGATIVE (Negative); URINE SPECIFIC GRAVITY 1.015 (1.005-1.035); URINE UROBILINOGEN 0.2 E.U./dl (0.2-1.0)
[2020-01-17 07:06] LABS: ALBUMIN 2.9 g/dL (3.4-5.0); SGOT 34 U/L (15-37); SGPT 45 U/L (30-65); TOTAL BILIRUBIN 0.3 mg/dL (0.2-1.0); TOTAL PROTEIN 6.8 g/dL (6.4-8.2); TROPONIN-I <0.06 ng/mL (<0.06)
--- NOTE | 2020-01-17 07:37 | EKG ---
[facility] [place] [address] ELECTROCARDIOGRAM REPORT Name: YUMI CAMARA Room #: REG [facility]#: [id number] Admission: 01/17/20 Attend Phys: Discharge: Date of : 46 Report #: [id number] THIS REPORT FOR: cc: FAM - Family physician unknown FAM - Family physician unknown Yusef Saldana MD [facility] ~ THIS REPORT FOR: //name// [facility] ED Test Date: 2020-01-17 Test Time: 05:03:26 Pat Name: YUMI CAMARA Department: Room: Gender: F In Home Tutor: [facility] : 1950 Requested By: Abhay Edmondson Order Number: [id number] MD: Yusef Saldana Measurements Intervals [place] Rate: 82 P: 40 AR: 171 QRS: 34 QRSD: 83 T: 72 QT: 394 QTc: 461 Interpretive Statements Sinus rhythm No significant abnormality Compared to ECG 12/21/2019 14:03:58 No significant changes Electronically Signed On 01-17-2020 7:37:10 CDT by Yusef Saldana [email or web address] <ELECTRONICALLY SIGNED> By: Yusef Saldana MD, FAC 01/17/20 0737 [id number] 050 Yusef Saldana MD, FAC /EPI
[2020-01-17 12:57] LABS: AMP/METHAMP Negative (Negative); BARBITURATES Negative (Negative); BENZODIAZEPINES POSITIVE (Negative); COCAINE Negative (Negative); METHADONE Negative (Negative); OPIATES POSITIVE (Negative); PCP Negative (Negative)
[2020-01-17 15:15] VITALS: BP 124/86
--- NOTE | 2020-01-17 15:17 | NUR ---
Report attempted to 3 yoder nurse. Unable to take report and will call back
--- NOTE | 2020-01-17 16:10 | NUR ---
Unable to updated medications due to altered menta status. Patient is confused on location. Pt is unaware of her medical history. This RN looks in chart at previous visits for medical hx
[2020-01-17 16:15] VITALS: BP 116/90
[2020-01-17 16:32] VITALS: BP 150/97
[2020-01-17 17:07] VITALS: BP 144/78
[2020-01-17 19:15] LABS: BE(vivo) 4.3 mmol/L (-2 to +3); HCO3 30.4 mmol/L (22.0-26.0); PCO2 51.2 mmHg (35.0-45.0); pH 7.391 (7.360-7.450); sO2 95.4 % (92.0-98.0)
--- NOTE | 2020-01-17 19:43 | NUR ---
PT ADMITTED FROM ER FOR R/O COVID AND ACUTE HYPOXIC RESP FAILURE, PT IS ON O2 3L/MIN/NC TO KEEP O2SAT AT 94-95%, PT IS DROWSY , AND SHE CAN FOLLOW COMMANDS, RN HAS CALLED FOR ADMITTED ORDER,
[2020-01-17 21:43] VITALS: BP 182/74
[2020-01-18 01:21] VITALS: BP 183/87
[2020-01-18 05:33] VITALS: BP 206/84
[2020-01-18 07:53] VITALS: BP 120/50
--- NOTE | 2020-01-18 08:17 | NUR ---
ASSUMED CARE AT 1900. PT UPSET ABOUT HER PAIN MEDICATIONS, SAYING SHE HAD NOT HAD ANY FOR 24 HOURS; PAIN WAS IN LEGS AND FEET; OBTAINED ORDERS FOR HOME OXCYCONTIN AND GABAPENTIN, PT KEPT ASKING FOR IV PAIN MEDS. PT NOT KEEPING O2 ON OVERNIGHT, COMPLAINING HER NOSE WAS DRY; SATS WERE 92-95% ON RA W/FREQ NONPROD COUGH. SR ON TELE; ELEVATED BP OVERNIGHT NOT IMPROVING WITH PAIN MEDS; GAVE IV VASOTECH THIS AM. CONTINUED TO BE RESTLESS, AGITATED, AND VERBALLY INAPROPRIATE; YELLING AND CURSING AT STAFF ABOUT PAIN MEDS. SAID HER PHYSICIAN, DR. BERMAN, HAD ORDERED OXYCONTIN, PERCOCET, AND XANAX FOR HER AT HOME; PT UNABLE TO PROVIDE CONSISTENT DOSAGE OR A PHARMACY SHE FILLED THESE AT. GAVE MULTIPLE ONE TIME DOSES THROUGHOUT THE NIGHT, WITH ONLY THE DOSE OF DILAUDID GIVING ABOUT 3 HOURS RELIEF FROM PT YELLING. PT KEPT STATING SHE WAS LEAVING AMA IF NOT GIVEN IV PAIN MEDS. SHIFT REPORT GIVEN AT 0700.
[2020-01-18 11:36] VITALS: BP 133/60
--- NOTE | 2020-01-18 15:56 | NUR ---
1430 PT BEING AGRESSIVE, SECURITY CALLED, STAFF IN THE ROOM WELL. PT STARTED THROWING STAFF AND STARTED TAKING HER IV OUT. SHE STATED SHE WANTS TO LEAVE BECAUSE THE DOCTOR ARE NOT GIVING HER THE PAIN KMEDICATION SHE WANTS. DR. MCCORD IN PT ROOM, ASSESSED PT AND STATED IF PT WANTS TO GO AMA, PT IS IN THE RIGHT FRAME OF MIND TO DO SO. DR. JARAIMLLO PAGED AND MADE AWARE. 1445 PT SIGNED AMA PAPERS, STATED SHE WANTED A CAB. EXPLAINED TO PT WE ARE UNABLE TO CALL HER HER CAB AND SHE WILL HAVE TO DO SO HER SELF. 1530 PT IS IN HER ROOM, STATING SHE WILL ONLY LEAVE WHEN WE PROVIDE HER A RIDE. CONTINUE T EXPLAIN TO PT WE ARE NOT ALLOWED TO. CONINUE TO YELL OUT, PT MADE AWRE TO BE RESPECTFUL TO OTHERS.
[2020-01-18 16:26] VITALS: BP 143/68
--- NOTE | 2020-01-18 18:20 | NUR ---
1730 PT PROVIDED WITH CAB VOUCHER BY COMB MACHINE OPERATOR, CONTINUE TO INSIST ON LEAVING IF WE WILL NOT PROVIDE HER WITH THE PAIN MEDICATION SHE WANTED. 1800 PT TAKEN DOWN BY SECREATARY BY WHEELCHAIR.
== END 2020-01-18 18:07 | disposition left against medical advice (07) | DRG 291 ==
LOC: ER 04:52 → 3W 12:08 → EROBS 12:08 → 3W 16:28
PROVIDERS: Emergency Medicine; ADMIT Internal Medicine; ATTEND Internal Medicine
DX: I13.0 Hypertensive heart and chronic kidney disease with heart failure and stage 1 through stage 4 chronic kidney disease, or unspecified chronic kidney disease (principal); I50.33 Acute on chronic diastolic (congestive) heart failure; J96.22 Acute and chronic respiratory failure with hypercapnia; J96.21 Acute and chronic respiratory failure with hypoxia; G93.40 Encephalopathy, unspecified; J44.1 Chronic obstructive pulmonary disease with (acute) exacerbation; E11.22 Type 2 diabetes mellitus with diabetic chronic kidney disease; I25.10 Atherosclerotic heart disease of native coronary artery without angina pectoris; E78.5 Hyperlipidemia, unspecified; E66.01 Morbid (severe) obesity due to excess calories; Z53.29 Procedure and treatment not carried out because of patient's decision for other reasons; G89.4 Chronic pain syndrome; N18.9 Chronic kidney disease, unspecified; Z20.828 Contact with and (suspected) exposure to other viral communicable diseases; E11.42 Type 2 diabetes mellitus with diabetic polyneuropathy; Z68.37 Body mass index [BMI] 37.0-37.9, adult; Z91.041 Radiographic dye allergy status; Z88.5 Allergy status to narcotic agent; Z88.8 Allergy status to other drugs, medicaments and biological substances; Z90.49 Acquired absence of other specified parts of digestive tract; Z95.1 Presence of aortocoronary bypass graft; E78.00 Pure hypercholesterolemia, unspecified
CPT/HCPCS: 10879

== ENCOUNTER 2020-04-09 11:57 | Emergency (ER) | payer OTHER ==
[~2020-04-09] VITALS: Ht 167.6 cm; Wt 106.6 kg
[2020-04-09 13:43] LABS: URINE BILIRUBIN NEGATIVE (Negative); URINE BLOOD NEGATIVE (Negative); URINE CLARITY CLEAR; URINE COLOR YELLOW; URINE GLUCOSE-RANDOM* NEGATIVE (Negative); URINE KETONES NEGATIVE (Negative); URINE LEUKOCYTES-REFLEX NEGATIVE (Negative); URINE NITRITE-REFLEX NEGATIVE (Negative); URINE PROTEIN (DIPSTICK) NEGATIVE (Negative); URINE UROBILINOGEN 0.2 E.U./dl (0.2-1.0)
[2020-04-09 14:20] LABS: ABSOLUTE NEUTROPHILS 8.8 thou/uL (1.4-8.2); EOSINOPHILS 1.3 % (0.0-3.0); HEMATOCRIT 42.2 % (37.0-47.0); HEMOGLOBIN 14.2 gm/dL (12.0-15.0); LYMPHOCYTES 16.2 % (24.0-44.0); MCH 31.8 pg (26.0-34.0); MCHC 33.7 g/dL (28.0-37.0); MCV 94.6 fL (80.0-100.0); MONOCYTES 7.1 % (1.0-8.0); PLATELET COUNT 366 thou/uL (150-400); POLYS 74.4 % (36.0-66.0); RBC 4.46 mil/uL (4.20-5.00); RDW 13.5 % (10.5-14.5); WBC 11.8 thou/uL (4.0-11.0)
[2020-04-09 14:37] LABS: CALCIUM 9.7 mg/dL (8.5-10.1); CREATININE 0.7 mg/dL (0.6-1.0); POTASSIUM 4.4 mmol/L (3.5-5.1)
[2020-04-09 14:40] LABS: ALBUMIN 3.7 g/dL (3.4-5.0); TOTAL BILIRUBIN 0.5 mg/dL (0.2-1.0); TOTAL PROTEIN 7.6 g/dL (6.4-8.2)
[2020-04-09 20:48] VITALS: BP 138/85
== END 2020-04-09 21:26 | disposition home or self-care (01) ==
LOC: ER 11:57
PROVIDERS: Emergency Medicine
DX: R10.84 Generalized abdominal pain (principal); F41.9 Anxiety disorder, unspecified; R51.9 Headache, unspecified; E11.22 Type 2 diabetes mellitus with diabetic chronic kidney disease; I12.9 Hypertensive chronic kidney disease with stage 1 through stage 4 chronic kidney disease, or unspecified chronic kidney disease; N18.9 Chronic kidney disease, unspecified; E11.40 Type 2 diabetes mellitus with diabetic neuropathy, unspecified; I25.10 Atherosclerotic heart disease of native coronary artery without angina pectoris; J44.9 Chronic obstructive pulmonary disease, unspecified; E78.5 Hyperlipidemia, unspecified; F32.9 Major depressive disorder, single episode, unspecified; Z79.899 Other long term (current) drug therapy; Z88.5 Allergy status to narcotic agent; Z88.8 Allergy status to other drugs, medicaments and biological substances; Z91.041 Radiographic dye allergy status; Z88.2 Allergy status to sulfonamides; W08.XXXA Fall from other furniture, initial encounter; Y93.89 Activity, other specified; Y92.89 Other specified places as the place of occurrence of the external cause; Y99.8 Other external cause status

== ENCOUNTER 2020-11-17 22:30 | Emergency (ER) | payer OTHER ==
[~2020-11-17] VITALS: Ht 157.5 cm; Wt 77.1 kg
--- NOTE | ~2020-11-17 | EMS ---
[address] [address] EMS Patient Care Report Name: HORACIO CAMARA Room #: DEP BERTHA Umana#: [id number] Admission: 11/17/20 Attend Phys: Discharge: 11/18/20 Date of : 46 Report #: [id number] THIS REPORT FOR: //name// Report Transmitted: 11/22/2020 15:02 EMS Care Summary [facility] Incident [id number] @ 11/17/2020 21:40 Incident Location [id number] [place] [address] Patient HORACIO CAMARA Female, 70 Years 1950 Patient Address [id number] [place] [address] Patient History Diabetes,Cardiac Condition - Other,Cardiac - Stent,Neuropathy,Pressure Ulcer,Crohn's Disease, Patient Allergies Sulfa,Fentanyl,Flexeril,Amoxicillin, Patient Medications Metformin, Gabapentin, Glimepiride, Oxycodone, Zofran, None Reported, Chief Complaint abdominal pain Disposition Transported No Lights/[place] Dispatch Reason Abdominal Pain/Problems Transported To [facility] Narrative S51 dispatched and responded to Abdominal Pain Prasad. S51 arrived on scene [address] [address] EMS Patient Care Report Name: HORACIO CAMARA Room #: DEP BERTHA Umana#: [id number] Admission: 11/17/20 Attend Phys: Discharge: 11/18/20 Date of : 46 Report #: [id number] without incident or delay. Pt was found lying on the couch and stating "I'm dying." Pt stated that she had been experiencing N/V for the past two weeks. Pt stated that her stomach was "killing her." Pt's son stated that pt had a history of abdominal pain, including "ulcers and crohn's disease." Pt's son stated that the pt had a "pancreatic stent" put in "recently." Pt stated that her pain didn't feel like an ulcer. Pt stated that she had gone to the hospital numerous times for the same complaint and "they did nothing" for her pain. Pt denied any chest pain. Pt rated her pain a 10 out of 10. Pt requested transport to [place]. Pt was able to ambulate to the stretcher with assistance. Pt was secured to the stretcher. Once to the ambulance, pt was attached to the phototypesetting equipment monitor and vitals were obtained. En route, a secondary assessment was performed. Pt referenced to her upper right and left abdominal quadrants, when asked where her pain was located. Pain was noted to the left and right upper quadrants on palpation. Pt stated that the pain prevented her from taking a deep breath. Pt stated that she is on pain meds for chronic pain. Pt stated that she ran out of her pain medication "5 days ago." IV access when attempted on route, but was unsuccessful. 12 ld was obtained. Pts condition and vitals were continuously monitored. S51 arrived at the hospital without incident or delay. Pt signatures was obtained at this time. Pt was taken to assigned ED room. Pt report was given to the receiving nurse. Facility signatures were obtained. S51 returned to service. Initial Vitals @22:03P: 76,R: 18,BP: 105/46,Pain: 10/10,GCS: 15,SpO2: 96,Revised Trauma: 12, @22:02P: 75,R: 18,BP: 110/56,Pain: 10/10,GCS: 15,SpO2: 98,Revised Trauma: 12, @22:17P: 79,R: 18,Pain: 10/10,GCS: 15,SpO2: 97, @22:11R: 18,Pain: 10/10,GCS: 15,SpO2: 97, Impression Abdominal Pain Procedures @22:1112-Lead ECGSucceeded@22:113-Lead ECGSucceeded@22:20 cc (20 ga) Site: Antecubital-LeftResponse: UnchangedFailed@21:50ALS AssessmentSucceeded Timeline 21:38,Call Received 21:38,Psap Call 21:40,Dispatched [address] [address] EMS Patient Care Report Name: HOAZAIRABONJj Room #: DEP BERTHA Umana#: [id number] Admission: 11/17/20 Attend Phys: Discharge: 11/18/20 Date of : 46 Report #: [id number] 21:42,En Route 21:44,Initial Responder On Scene 21:46,On Scene 21:48,At Patient 21:50,ALS Assessment,Succeeded, 21:58,Depart Scene 22:02,BP: 110/56 M,PULSE: 75,RR: 18 R,SPO2: 98 Ox,ETCO2: ,BG: ,PAIN: 10,GCS: 15, 22:03,BP: 105/46 M,PULSE: 76,RR: 18 R,SPO2: 96 Ox,ETCO2: ,BG: ,PAIN: 10,GCS: 15, 22:11,3-Lead ECG,Succeeded, 22:11,12-Lead ECG,Succeeded, 22:11,BP: / M,PULSE: ,RR: 18 R,SPO2: 97 Ox,ETCO2: ,BG: ,PAIN: 10,GCS: 15, 22:17,BP: / M,PULSE: 79,RR: 18 R,SPO2: 97 Ox,ETCO2: ,BG: ,PAIN: 10,GCS: 15, 22:20, cc 20 ga Site: Antecubital-Left,Response: UnchangedFailed, 22:28,At Destination 22:35,Transfer Patient 22:43,Call Closed Disclaimer v1.1 Copyright 2020 [employer] This EMS Care Summary contains data elements from the applicable legal record (which may be displayed differently). It is designed to provide pertinent information for the following purposes: continuity of care, clinical quality, and state data reporting. The complete legal record is available to ED staff and administrators of the receiving hospital in [employer]'s Patient Tracker. All data is provided "as is."
--- NOTE | ~2020-11-17 | EMS ---
[address] [address] EMS Patient Care Report Name: HORACIO CAMARA Room #: REG BERTHA Umana#: [id number] Admission: 11/17/20 Attend Phys: Discharge: Date of : 46 Report #: [id number] THIS REPORT FOR: //name// Report Transmitted: 11/18/2020 06:36 EMS Care Summary [facility] Incident [id number] @ 11/17/2020 21:40 Incident Location [id number] [place] [address] Patient HORACIO CAMARA Female, 70 Years 1950 Patient Address [id number] [place] [address] Patient History Diabetes,Cardiac Condition - Other,Cardiac - Stent,Neuropathy,Pressure Ulcer,Crohn's Disease, Patient Allergies Sulfa,Fentanyl,Flexeril,Amoxicillin, Patient Medications Metformin, Gabapentin, Glimepiride, Oxycodone, Zofran, None Reported, Chief Complaint abdominal pain Disposition Transported No Lights/[place] Dispatch Reason Abdominal Pain/Problems Transported To [facility] Narrative S51 dispatched and responded to Abdominal Pain Prasad. S51 arrived on scene [address] [address] EMS Patient Care Report Name: HORACIO CAMARA Room #: JUAN Umana#: [id number] Admission: 11/17/20 Attend Phys: Discharge: Date of : 46 Report #: [id number] without incident or delay. Pt was found lying on the couch and stating "I'm dying." Pt stated that she had been experiencing N/V for the past two weeks. Pt stated that her stomach was "killing her." Pt's son stated that pt had a history of abdominal pain, including "ulcers and crohn's disease." Pt's son stated that the pt had a "pancreatic stent" put in "recently." Pt stated that her pain didn't feel like an ulcer. Pt stated that she had gone to the hospital numerous times for the same complaint and "they did nothing" for her pain. Pt denied any chest pain. Pt rated her pain a 10 out of 10. Pt requested transport to [place]. Pt was able to ambulate to the stretcher with assistance. Pt was secured to the stretcher. Once to the ambulance, pt was attached to the tour sales representative and vitals were obtained. En route, a secondary assessment was performed. Pt referenced to her upper right and left abdominal quadrants, when asked where her pain was located. Pain was noted to the left and right upper quadrants on palpation. Pt stated that the pain prevented her from taking a deep breath. Pt stated that she is on pain meds for chronic pain. Pt stated that she ran out of her pain medication "5 days ago." IV access when attempted on route, but was unsuccessful. 12 ld was obtained. Pts condition and vitals were continuously monitored. S51 arrived at the hospital without incident or delay. Pt signatures was obtained at this time. Pt was taken to assigned ED room. Pt report was given to the receiving nurse. Facility signatures were obtained. S51 returned to service. Initial Vitals @22:03P: 76,R: 18,BP: 105/46,Pain: 10/10,GCS: 15,SpO2: 96,Revised Trauma: 12, @22:02P: 75,R: 18,BP: 110/56,Pain: 10/10,GCS: 15,SpO2: 98,Revised Trauma: 12, @22:17P: 79,R: 18,Pain: 10/10,GCS: 15,SpO2: 97, @22:11R: 18,Pain: 10/10,GCS: 15,SpO2: 97, Impression Abdominal Pain Procedures @22:1112-Lead ECGSucceeded@22:113-Lead ECGSucceeded@22:20 cc (20 ga) Site: Antecubital-LeftResponse: UnchangedFailed Timeline 21:38,Call Received 21:38,Psap Call 21:40,Dispatched [address] [address] EMS Patient Care Report Name: HORACIO CAMARA Room #: REG BERTHA Umana#: [id number] Admission: 11/17/20 Attend Phys: Discharge: Date of : 46 Report #: [id number] 21:42,En Route 21:44,Initial Responder On Scene 21:46,On Scene 21:48,At Patient 21:58,Depart Scene 22:02,BP: 110/56 M,PULSE: 75,RR: 18 R,SPO2: 98 Ox,ETCO2: ,BG: ,PAIN: 10,GCS: 15, 22:03,BP: 105/46 M,PULSE: 76,RR: 18 R,SPO2: 96 Ox,ETCO2: ,BG: ,PAIN: 10,GCS: 15, 22:11,3-Lead ECG,Succeeded, 22:11,12-Lead ECG,Succeeded, 22:11,BP: / M,PULSE: ,RR: 18 R,SPO2: 97 Ox,ETCO2: ,BG: ,PAIN: 10,GCS: 15, 22:17,BP: / M,PULSE: 79,RR: 18 R,SPO2: 97 Ox,ETCO2: ,BG: ,PAIN: 10,GCS: 15, 22:20, cc 20 ga Site: Antecubital-Left,Response: UnchangedFailed, 22:28,At Destination 22:35,Transfer Patient 22:43,Call Closed Disclaimer v1.1 Copyright 2020 [employer] This EMS Care Summary contains data elements from the applicable legal record (which may be displayed differently). It is designed to provide pertinent information for the following purposes: continuity of care, clinical quality, and state data reporting. The complete legal record is available to ED staff and administrators of the receiving hospital in [employer]'s Patient Tracker. All data is provided "as is."
[2020-11-18 01:15] LABS: ALBUMIN 1.9 g/dL (3.4-5.0); CREATININE 0.6 mg/dL (0.6-1.0); TOTAL BILIRUBIN 0.3 mg/dL (0.2-1.0); TOTAL PROTEIN 4.7 g/dL (6.4-8.2)
[2020-11-18 01:19] LABS: ABSOLUTE NEUTROPHILS 12.4 thou/uL (1.4-8.2); BASOPHILS 0.8 % (0.0-2.0); EOSINOPHILS 1.8 % (0.0-3.0); HEMATOCRIT 45.1 % (37.0-47.0); HEMOGLOBIN 15.8 gm/dL (12.0-15.0); LYMPHOCYTES 17.5 % (24.0-44.0); MCH 32.7 pg (26.0-34.0); MCV 93.6 fL (80.0-100.0); MONOCYTES 7.9 % (1.0-8.0); RBC 4.82 mil/uL (4.20-5.00); RDW 12.6 % (10.5-14.5); WBC 17.2 thou/uL (4.0-11.0)
[2020-11-18 01:20] LABS: POTASSIUM 3.1 mmol/L (3.5-5.1)
[2020-11-18 01:21] LABS: CALCIUM 5.1 mg/dL (8.5-10.1)
[2020-11-18 01:53] LABS: PLATELET COUNT 455 thou/uL (150-400)
[2020-11-18 02:54] LABS: URINE BILIRUBIN NEGATIVE (Negative); URINE BLOOD NEGATIVE (Negative); URINE CLARITY CLEAR; URINE COLOR YELLOW; URINE GLUCOSE-RANDOM* NEGATIVE (Negative); URINE KETONES NEGATIVE (Negative); URINE LEUKOCYTES-REFLEX NEGATIVE (Negative); URINE NITRITE-REFLEX NEGATIVE (Negative); URINE PROTEIN (DIPSTICK) NEGATIVE (Negative); URINE UROBILINOGEN 0.2 E.U./dl (0.2-1.0)
[2020-11-18 07:45] VITALS: BP 117/53
== END 2020-11-18 07:45 | disposition home or self-care (01) ==
LOC: ER 22:30
PROVIDERS: Student in an Organized Health Care Education/Training Program
DX: R10.11 Right upper quadrant pain (principal); I25.10 Atherosclerotic heart disease of native coronary artery without angina pectoris; J44.9 Chronic obstructive pulmonary disease, unspecified; E78.5 Hyperlipidemia, unspecified; N18.9 Chronic kidney disease, unspecified; I13.10 Hypertensive heart and chronic kidney disease without heart failure, with stage 1 through stage 4 chronic kidney disease, or unspecified chronic kidney disease; E11.22 Type 2 diabetes mellitus with diabetic chronic kidney disease; F41.9 Anxiety disorder, unspecified; F32.9 Major depressive disorder, single episode, unspecified; Z88.5 Allergy status to narcotic agent; Z88.2 Allergy status to sulfonamides; Z91.02 Food additives allergy status; Z88.8 Allergy status to other drugs, medicaments and biological substances

== ENCOUNTER 2020-11-21 19:36 | Inpatient (IN) | payer OTHER ==
[~2020-11-21] VITALS: Ht 160 cm; Wt 91.3 kg
--- NOTE | ~2020-11-21 | EMS ---
[address] [address] EMS Patient Care Report Name: HORACIO CAMARA Room #: 449-I ADM IN M.R.#: [id number] Admission: 11/21/20 Attend Phys: Erich Gordillo MD Discharge: Date of : 46 Report #: [id number] THIS REPORT FOR: //name// Report Transmitted: 11/22/2020 08:50 EMS Care Summary [place], [place]/[facility] Incident [id number] @ 11/21/2020 18:49 Incident Location [address] [place] [address] Patient HORACIO CAMARA Female, 70 Years 1950 Patient Address [id number] [place] [address] Patient History Diabetes,Hypertension (HTN), Patient Allergies Other drug allergy, Patient Medications Unknown, Chief Complaint Abdominal Pain Disposition Transported No Lights/[place] Dispatch Reason Abdominal Pain/Problems Transported To [facility] Narrative Dispatched for abdominal pain. Upon arrival found female pt sitting outside of her apartment stating that she had been having abdominal pain for the past [address] [address] EMS Patient Care Report Name: HORACIO CAMARA Room #: 449-I ADM IN M.[place].#: [id number] Admission: 11/21/20 Attend Phys: Erich Gordillo MD Discharge: Date of : 46 Report #: [id number] weeks. Pt stated that she had been to the ER previously for the pain already but pt stated that ER did not fix the problem. Pt vitals assessed. PT was moved to the medic unit. While en route to the hospital, pt stated that she was also having some Nausea. Oral zofran administered. Pt and vitals reassessed. Pt remained unchanged throughout transport. Upon arrival at hospital, pt taken into ER. Pt care report given to RN. Pt care transferred to RN. Initial Vitals @19:25P: 88,R: 16,BP: 134/70,Pain: 6/10,GCS: 15,SpO2: 98,Revised Trauma: 12, @19:04P: 82,R: 18,BP: 132/70,Pain: 6/10,GCS: 15,SpO2: 98,Revised Trauma: 12, Assessments @19:00MENTAL:Event Oriented,Place Oriented,Person Oriented,Time Oriented,SKIN:HEENT:Head/Face: No Abnormalities,Neck/Airway: No Abnormalities,LUNG SOUNDS:General: Nausea,General: Diarrhea,Right Upper: Tenderness,Left Lower: Tenderness,Right Lower: Tenderness,Left Upper: Tenderness,ABDOMEN:General: Nausea,General: Diarrhea,Right Upper: Tenderness,Left Lower: Tenderness,Right Lower: Tenderness,Left Upper: Tenderness,PELVIS//GI:No Abnormalities,EXTREMITIES:Capillary Refill: Right Upper: < 2 Sec,Left Arm: No Abnormalities,Right Arm: No Abnormalities,Left Leg: No Abnormalities,Right Leg: No Abnormalities,PULSE:Radial: 2+ Normal,NEURO:No Abnormalities,@19:12MENTAL:Place Oriented,Event Oriented,Time Oriented,Person Oriented,SKIN:HEENT:Head/Face: No Abnormalities,Neck/Airway: No Abnormalities,LUNG SOUNDS:Left Upper: Tenderness,Right Upper: Tenderness,General: Nausea,General: Diarrhea,Right Lower: Tenderness,Left Lower: Tenderness,ABDOMEN:Left Upper: Tenderness,Right Upper: Tenderness,General: Nausea,General: Diarrhea,Right Lower: Tenderness,Left Lower: Tenderness,PELVIS//GI:No Abnormalities,EXTREMITIES:Capillary Refill: Right Upper: < 2 Sec,Left Arm: No Abnormalities,Right Arm: No Abnormalities,Left Leg: No Abnormalities,Right Leg: No Abnormalities,PULSE:Radial: 2+ Normal,NEURO:No Abnormalities, Impression Abdominal Pain Procedures @19:00ALS AssessmentResponse: UnchangedSucceeded@19:16Zofran - 4 Milligrams (mg) - OralResponse: Unchanged Timeline 18:46,Call Received 18:46,Dispatch Notified 18:49,Dispatched 18:50,En Route 18:54,On Scene 19:00,At Patient [address] [address] EMS Patient Care Report Name: HOAROBERTO CARLOSGUILLERMO Room #: 449-I [facility] IN M.R.#: [id number] Admission: 11/21/20 Attend Phys: Erich Gordillo MD Discharge: Date of : 46 Report #: [id number] 19:00,ALS Assessment,Response: UnchangedSucceeded, 19:04,BP: 132/70 M,PULSE: 82,RR: 18 R,SPO2: 98 Ox,ETCO2: ,BG: ,PAIN: 6,GCS: 15, 19:08,Depart Scene 19:16,Zofran - 4 Milligrams (mg) - Oral,Response: Unchanged 19:25,BP: 134/70 M,PULSE: 88,RR: 16 R,SPO2: 98 Ox,ETCO2: ,BG: ,PAIN: 6,GCS: 15, 19:37,At Destination 19:46,Call Closed Disclaimer v1.1 Copyright 2020 [employer] This EMS Care Summary contains data elements from the applicable legal record (which may be displayed differently). It is designed to provide pertinent information for the following purposes: continuity of care, clinical quality, and state data reporting. The complete legal record is available to ED staff and administrators of the receiving hospital in [employer] Patient Tracker. All data is provided "as is."
[2020-11-21 19:39] VITALS: BP 142/92
[2020-11-21 21:44] LABS: ABSOLUTE NEUTROPHILS 15.7 thou/uL (1.4-8.2); BASOPHILS 0.6 % (0.0-2.0); EOSINOPHILS 0.8 % (0.0-3.0); HEMATOCRIT 51.6 % (37.0-47.0); HEMOGLOBIN 17.2 gm/dL (12.0-15.0); MCH 31.3 pg (26.0-34.0); MCHC 33.2 g/dL (28.0-37.0); MCV 94.2 fL (80.0-100.0); MONOCYTES 6.6 % (1.0-8.0); PLATELET COUNT 580 thou/uL (150-400); RBC 5.48 mil/uL (4.20-5.00); RDW 12.8 % (10.5-14.5); WBC 19.6 thou/uL (4.0-11.0)
[2020-11-21 22:00] LABS: CALCIUM 9.6 mg/dL (8.5-10.1); CREATININE 1.4 mg/dL (0.6-1.0); POTASSIUM 4.2 mmol/L (3.5-5.1)
[2020-11-21 22:14] LABS: ALBUMIN 4.1 g/dL (3.4-5.0); TOTAL BILIRUBIN 0.8 mg/dL (0.2-1.0); TOTAL PROTEIN 9.3 g/dL (6.4-8.2)
[2020-11-21 22:38] LABS: URINE BILIRUBIN 1+ (Negative); URINE BLOOD NEGATIVE (Negative); URINE CLARITY CLOUDY; URINE COLOR YELLOW; URINE GLUCOSE-RANDOM* NEGATIVE (Negative); URINE KETONES NEGATIVE (Negative); URINE LEUKOCYTES-REFLEX NEGATIVE (Negative); URINE NITRITE-REFLEX NEGATIVE (Negative); URINE PROTEIN (DIPSTICK) TRACE (Negative); URINE SPECIFIC GRAVITY >= 1.030 (1.005-1.035); URINE UROBILINOGEN 0.2 E.U./dl (0.2-1.0)
[2020-11-21 22:48] LABS: BACTERIA-REFLEX 1-9 Few /HPF (None Seen); CASTS None Seen /LPF (None Seen); CRYSTALS None Seen /LPF (None Seen); MUCUS 0-3 Light strn/LPF (None Seen); SQUAMOUS >10 Many /LPF (0-3); URINE RBC 1-2 Rare /HPF (NONE SEEN); URINE WBC-REFLEX 0-5 Rare /HPF (0-5)
[2020-11-21 23:38] VITALS: BP 119/60
[2020-11-22 00:02] VITALS: BP 142/92
--- NOTE | 2020-11-22 02:49 | NUR ---
NEW ADMISSION FOR SEPSIS AND RIGHT ABD PAIN. PATIENT AOX4 MAKES NEEDS KNOWN. PATIENT IS DEMANING THIS SHIFT. PATIENT SAYS SHE WANT TOO COZ OF ABD PAIN BUT DENIED SUCIDAL IDELATION. PATIENT C/O INCREASED PAIN PLASTIC SURGERY TECHNICIAN NOTIFIED PAIN MEDS CHANGED FROM Q 4 HOURS TO Q 3 HOURS. PATIENT NEEDS MAXIMUM ASSISTANCE WITH ADL, BED MOBILITY, TRANSFER AND TOILETING. PATIENT IS NPO. FALL PRECAUTION IN PLACE. PATIENT IN BED ASLEEP AT THIS TIME BREATHING REGULAR AND UNLABOURED.
--- NOTE | 2020-11-22 07:17 | EKG ---
[address] [place] [employer] [address] ELECTROCARDIOGRAM REPORT Name: HORACIO CAMARA Room #: 449-I ADM IN .R.#: [id number] Admission: 11/21/20 Attend Phys: Erich Gordillo MD Discharge: Date of : 46 Report #: [id number] [facility] ED Test Date: 2020-11-21 Test Time: 19:53:27 Pat Name: HORACIO CAMARA Department: Room: [facility] Gender: F Engineering Administrator: : 1950 Requested By: Debora Murrieta Order Number: [id number] MD: Suleman Mattson Measurements Intervals Purdys Rate: 91 P: 14 PA: 169 QRS: 23 QRSD: 77 T: 83 QT: 376 QTc: 463 Interpretive Statements Sinus rhythm Probable left atrial enlargement Probable left ventricular hypertrophy Compared to ECG 01/17/2020 05:03:26 No significant changes Electronically Signed On 11-22-2020 7:16:54 CDT by Suleman Mattson [email or web address] <ELECTRONICALLY SIGNED> By: Suleman Mattson MD, [facility] 11/22/20715 52 52 Suleman Mattson MD, FACC /EPI
[2020-11-22 07:18] VITALS: BP 167/88
--- NOTE | 2020-11-22 12:38 | NUR ---
Assumed pt care this am, maintained on isolation for c-diff r/o. Opiate dependence is evident, would call out for pain meds and cry stating she needs it now even if it is not time. Wound request every house for more, once medication is given pt would be asleep. Acts out when staff is in the room. Tries to manipulate and would state that MD had changed her pain meds when this was not the case. Stool sample sent to lab. POC followed, always calling out to be in pain, not managed with medications no relief is noted as verbalized MD aware.
--- NOTE | 2020-11-22 14:38 | NUR ---
PT ADMITTED RELATED TO SEPSIS AND ABD PAIN. CM REVIEWED CHART AND SPOKE WITH CARE TEAM. PT APPEARES TO BE A&O X4. CM ROLE INTRODUCED. PT INDICATED SHE RESIDES ALONE AT [place]DEP[place]ENT LIVING APARTMENT AT [facility]. PT INDICATED SHE USE A 4WW TO ASSIST WITH MOBILITY PROJECTS MANAGER. PT INDICATED SHE HAD BEEN INDEPEDNENT WITH ADLS PROJECTS MANAGER. PT INDICATED NO RECENT HH HX. SHE INDICATED HE PCP IS DR. HU. PT INDICATED SHE PLANS TO RETURN HOME ONCE MEDICALLY STABLE. NO OTHER CM INTERVENTION INDICATED.
--- NOTE | 2020-11-22 14:42 | NUR ---
PT ADMITTED RELATED TO SEPSIS AND ABD PAIN. CM REVIEWED CHART AND SPOKE WITH CARE TEAM. PT APPEARES TO BE A&O X4. CM ROLE INTRODUCED. PT INDICATED SHE RESIDES ALONE AT INDEPEDNENT LIVING APARTMENT AT [facility]. PT INDICATED SHE USE A 4WW TO ASSIST WITH MOBILITY AFTERNOON NANNY. PT INDICATED SHE HAD BEEN INDEPEDNENT WITH ADLS AFTERNOON NANNY. PT INDICATED NO RECENT HH HX. SHE INDICATED HE PCP IS DR. HU. PT INDICATED SHE MIGHT NE RECEPTIVE TO SKILLED POST ACUTE CARE STAY AT [facility] IF NEEDED. PT INDICATED SHE PLANS TO RETURN HOME ONCE MEDICALLY STABLE. CM FOLLOWING REGARDING DC PLANNING.
[2020-11-22 19:54] VITALS: BP 156/85
--- NOTE | 2020-11-23 03:36 | NUR ---
patient aox4 makes needs known. patient c/o ble pain and abd pain prn given.pain and anxiety controlled this shift. patient denied sucidal idelation after stating she later be than have any pain. notified new order for psych eval. patient asleep at this time breathing regular and unlaboured.
[2020-11-23 07:20] VITALS: BP 121/60
[2020-11-23 11:50] VITALS: BP 147/75
[2020-11-23 12:03] LABS: MCH 31.4 pg (26.0-34.0); MCHC 32.7 g/dL (28.0-37.0); RBC 4.27 mil/uL (4.20-5.00); RDW 12.7 % (10.5-14.5)
[2020-11-23 12:12] LABS: HEMOGLOBIN 13.4 gm/dL (12.0-15.0)
[2020-11-23 12:34] LABS: ALBUMIN 2.7 g/dL (3.4-5.0); CALCIUM 8.4 mg/dL (8.5-10.1); CREATININE 0.9 mg/dL (0.6-1.0); DIRECT BILIRUBIN 0.1 mg/dL (<0.1-0.2); POTASSIUM 4.6 mmol/L (3.5-5.1); TOTAL BILIRUBIN 0.5 mg/dL (0.2-1.0); TOTAL PROTEIN 5.9 g/dL (6.4-8.2)
[2020-11-23] MEDS ORDERED: ACIDOPHILUS1 EAC4 PO (13:27)
[2020-11-23] MEDS ORDERED: ZOFRAN ODT4 MG PO (13:27)
[2020-11-23] MEDS ORDERED: PEPCID20 MG PO (13:27)
[2020-11-23] MEDS ORDERED: LOPERAMIDE 2 MG2 M1 PO (13:27)
[2020-11-23] MEDS ORDERED: LIDOPATCH1 EACH TRANSDERM (13:27)
[2020-11-23] MEDS ORDERED: TRAMADOL 50 MG50 MG PO (13:28)
[2020-11-23 13:53] VITALS: BP 147/75
--- NOTE | 2020-11-23 15:49 | NUR ---
CARE TEAM INDICATED THAT PT WAS MEDICALLY STABLE TO DC HOME THIS DAY. PT INDICATED TO STAFF AND PHYSICIAN THAT SHE CAN'T DC TODAY. CM MET WITH PT AND SHE IS STATEING THAT SHE CAN'T GO HOME NOW TO HER APARTMENET ALONE WITH NO FOOD OR DRINK. THAT SHE NEEDS TO WAIT FOR HER SON WHO IS AVAIABLE TOMORROW. CM OFFERED TRANSPORT HOME FOOD AND DRINK TO TIED HER OVER PT DECLINED AND AGAIN REITERATED THAT SHE CAN'T LEAVE [place] TOMORROW. CARE TEAM INDICATED THAT PT IS A 2 DAY SEPSIS AND SHOULD TECHINICALLY HAVE ANOTHER DAY... DETERMINED TO DC TOMORROW. CM TO ASSIST IN FACILITATE DC.
[2020-11-23 16:30] VITALS: BP 137/75
--- NOTE | 2020-11-23 19:36 | NUR ---
Assumed pt care at 7am.Pt in bed sleeping till around 830am .Assessment completed.vss.Pt c/o lower extremities pain and tramadol given as ordered. Pt constantly intervention teacher light asking for yogurt.Dr Walker rounded on pt and dc order noted.Pt refused dc home stated that she her son was not home and has nobody to care for her.Dr Walker said pt can stay till am.Dc home cancelled. Fall bundle in place and pt has watery bloody stool this shift.Gi notified. Loperamide given as ordered. Will continue to monitor.
[2020-11-23 19:39] VITALS: BP 166/99
--- NOTE | 2020-11-24 05:04 | NUR ---
ASUMED CARE OF PT AT SHIFT CHANGE. PT IS AOX4 AND LETS NEEDS BE KNOWN. FALL PRECAUTION IN PLACE BUT PT IS NON COMPLIENT. ASSESSMENT CHARTED. PT REPORTED 10/10 FOOT PAIN. PRN PAIN MEDS PROVIDED WITH NO RELIEF. PT WAS UNABLE TO SLEEP THIS SHIFT. PT REQUESTED YOGURT SEVERAL TIMES TIMES THIS SHIFT. PT REPORTED THAT A COUPLE OF THESE YOGURTS WERE "" AND ASKED FOR REPLACEMENTS. THIS RN INVESTIGATED FOR YOGURT CONTAINER IN [facility], NO WAS FOUND AND ALL CONTAINERS WERE EMPTY. WILL CONTINUE TO MONITOR FOR CHANGES. PT TO DC THIS AM.
[2020-11-24 07:14] VITALS: BP 178/96
--- NOTE | 2020-11-24 09:53 | NUR ---
PT IS MEDICALLY STABLE TO DC HOME THIS DAY. CM MET WITH PT AT BEDSIDE THIS AM AND ASKED IF SHE NEEDED TRANSPORT SET UP WE HAD JUST BEEN WAITING FOR HER SON YESTERDAY. PT INDICATED SHE HAD JUST THROWN UP AND COULDN'T TALK. CM INDICATED THAT CM WOULD SET UP TRANSPORT AND LET HER KNOW WHAT TIME THEY WOULD BE HERE. [facility] SET UP FOR BETWEEN 12:00-12:30. CARE TEAM IS AWARE. NO OTHER CM INTERVENTION INDICATED. CASE CLOSED.
--- NOTE | 2020-11-24 10:22 | NUR ---
PATIENT IS VERBALLY ABUSIVE AND RESISTENT AGAINST DISCHARGING HOME. PATIENT WANTS TO STAY IN THE HOSPITAL BUT HAS BEEN MEDICALLY CLEARED BY PHYSICIAN. TOLD PATIENT WHAT TIME HER RIDE WOULD BE HERE AND SHE CONTINUES TO VERBALIZE WHEN SHE WANTS TO GO. NURSE BASS SINGER ASSISTING WITH SHOWER AND GATHERING BELONGINGS. TRANSPORTATION SET UP BY CASE MANAGEMENT. PATIENT REQUESTING PRESCRIPTIONS FOR OXYCODONE AND XANAX. PATIENT ADVISED THAT SHE IS GOING TO BE DISCHARGED WITH TRAMADOL AND WOULD NEED TO FOLLOW UP WITH HER PRIMARY PHYSICIAN FOR ANY ADDITIONAL NARCOTICS.
[2020-11-24 11:33] VITALS: BP 147/75
[2020-11-24 12:00] VITALS: BP 147/75
--- NOTE | 2020-11-24 12:19 | NUR ---
Assumed pt care at 7am.Pt in bed resting but has several c/o. Assessment completed.vss. Pt c/o abdominal pain.Am meds given with tramadol.Dr Walker here wanted pt dc home today s[place].But pt constantly flight operation coordinator light playing tricks not to dc home.Dc summary compile and reviewed with pt.Transport here to take pt home.Food package given. Pt will leave by 1230p.
== END 2020-11-24 12:50 | disposition home or self-care (01) | DRG 871 ==
LOC: ER 19:36 → EROBS 20:39 → 4W 20:39
PROVIDERS: Emergency Medicine; Hospitalist; Nurse Practitioner; Physician Assistant; ADMIT Hospitalist; ATTEND Hospitalist
DX: A41.9 Sepsis, unspecified organism (principal); J18.9 Pneumonia, unspecified organism; N17.9 Acute kidney failure, unspecified; I50.32 Chronic diastolic (congestive) heart failure; I13.0 Hypertensive heart and chronic kidney disease with heart failure and stage 1 through stage 4 chronic kidney disease, or unspecified chronic kidney disease; F11.20 Opioid dependence, uncomplicated; J44.0 Chronic obstructive pulmonary disease with (acute) lower respiratory infection; Z20.822 Contact with and (suspected) exposure to COVID-19; I25.10 Atherosclerotic heart disease of native coronary artery without angina pectoris; E78.5 Hyperlipidemia, unspecified; G89.4 Chronic pain syndrome; E11.42 Type 2 diabetes mellitus with diabetic polyneuropathy; N18.9 Chronic kidney disease, unspecified; E11.22 Type 2 diabetes mellitus with diabetic chronic kidney disease; F41.1 Generalized anxiety disorder; F32.9 Major depressive disorder, single episode, unspecified; Z66 Do not resuscitate; R53.81 Other malaise; R63.4 Abnormal weight loss; G47.00 Insomnia, unspecified; I71.4 Abdominal aortic aneurysm, without rupture; E53.8 Deficiency of other specified B group vitamins; K52.9 Noninfective gastroenteritis and colitis, unspecified; Z79.899 Other long term (current) drug therapy; Z95.1 Presence of aortocoronary bypass graft; Z88.2 Allergy status to sulfonamides; Z88.8 Allergy status to other drugs, medicaments and biological substances; Z88.6 Allergy status to analgesic agent; Z91.041 Radiographic dye allergy status; Z90.49 Acquired absence of other specified parts of digestive tract; Z87.891 Personal history of nicotine dependence; Z82.49 Family history of ischemic heart disease and other diseases of the circulatory system; Z68.35 Body mass index [BMI] 35.0-35.9, adult
CPT/HCPCS: 10045